=== PATIENT | male | born 1945 | race Caucasian/White ===

== ENCOUNTER 2022-09-01 10:01 | Inpatient (IN) | payer OTHER ==
[2022-09-01] VITALS (7 sets, daily range): BP systolic 115–126; BP diastolic 64–75
[~2022-09-01] VITALS: Ht 175.3 cm; Wt 94.8 kg
[~2022-09-01 10:01] MED LIST: AMLO10TA PO; C-251TAB PO; CHOL10007 PO; LISI20TA33 PO; NIAC500C5 PO; OMEG10002 PO; ROSU5TAB5 PO; ceFAZolin SOD 2 GM in IV 1 EA IV ONE
[2022-09-01] MEDS ORDERED: LR 1,000 ML IV SCH ×2 (10:10→15:20)
[2022-09-01] MEDS ORDERED: HOME MED LIST COMPLETE! XX SCH (10:55)
[2022-09-01] MEDS ORDERED: HEPARIN SOD (PORCINE) 5000UNITS/ML 1ML VIAL/SYRINGE SQ ONE ×2 (11:00→16:05)
[2022-09-01] MEDS ORDERED: BUPIVACAINE HCL 0.25% 30ML VIAL As Ordered ONE (11:13)
[2022-09-01] MEDS ORDERED: LIDOCAINE 1% SDV 30ML VIAL As Ordered ONE (11:13)
[2022-09-01] MEDS ORDERED: ROCURONIUM BROMIDE 50MG/5ML VIAL As Ordered ONE ×2 (11:21→12:02)
[2022-09-01] MEDS ORDERED: propofoL 200 MG/20 ML VIAL As Ordered ONE (11:21)
[2022-09-01] MEDS ORDERED: SUGAMMADEX SODIUM 500 MG/5 ML VIAL (BRIDION) As Ordered ONE (11:21)
[2022-09-01] MEDS ORDERED: LIDOCAINE 2% 100MG/5ML SDV (FOR ANES.) As Ordered ONE (11:21)
[2022-09-01] MEDS ORDERED: fentaNYL 100 MCG/2 ML INJECTION As Ordered ONE (11:22)
[2022-09-01] MEDS ORDERED: MIDAZOLAM INJ 2MG/2ML VIAL As Ordered ONE (11:23)
[2022-09-01] MEDS ORDERED: PERCOCET 5MG/325MG TAB PO PRN ×2 (11:45)
[2022-09-01] MEDS ORDERED: ONDANSETRON 4MG 2ML VIAL IV PRN ×2 (11:45→15:20)
[2022-09-01] MEDS ORDERED: ACETAMINOPHEN TAB 650MG DOSE (2X325MG) PO PRN (11:45)
[2022-09-01] MEDS: NS 1,000 ML IV SCH (11:45)
[2022-09-01] MEDS ORDERED: GLYCOPYRROLATE INJ 0.2 MG/ML 2 ML VIAL As Ordered ONE (12:01)
[2022-09-01] MEDS ORDERED: HYDROmorphone HCL 2MG/ML 1ML VIAL As Ordered ONE (12:08)
[2022-09-01] MEDS ORDERED: ACETAMINOPHEN 1000MG 100ML IV BAG As Ordered ONE (12:12)
[2022-09-01] MEDS ORDERED: PILL CUTTER 1 EACH XX PRN (12:15)
[2022-09-01] MEDS ORDERED: ONDANSETRON 4MG 2ML VIAL As Ordered ONE (12:22)
[2022-09-01] MEDS ORDERED: oxyCODONE 5MG TAB PO PRN (15:20)
[2022-09-01] MEDS ORDERED: HYDROMORPHONE HCL 0.5 MG/ 0.5 ML SYRINGE IV PRN (15:20)
[2022-09-01] MEDS ORDERED: fentaNYL 100 MCG/2 ML INJECTION IV PRN (15:20)
[2022-09-01 16:50] LABS: HEMATOCRIT 39.1 % (42.0-52.0); HEMOGLOBIN 13.3 g/dl (13.5-17.5); MEAN CORPUSCULAR VOLUME 88.1 fl (80.0-96.0); PLATELET COUNT, AUTOMATED 217 10^3/uL (150-450); RED BLOOD COUNT 4.44 10^6/uL (4.30-6.10); WHITE BLOOD COUNT 18.9 10^3/uL (4.0-10.0)
[2022-09-01 17:05] LABS: CALCIUM LEVEL 7.8 MG/DL (8.3-10.6); CREATININE FOR GFR 1.35 MG/DL (0.70-1.30); GLOMERULAR FILTRATION RATE 54.7 (>42); POTASSIUM SERUM 4.7 MMOL/L (3.5-5.1)
[2022-09-01] MEDS: ceFAZolin SOD 1 GM in D5W MINI-BAG PLUS 50 ML IV SCH (20:33)
[2022-09-01] MEDS: DOCUSATE SODIUM 100MG CAPSULE PO SCH (20:33)
[2022-09-01] MEDS ORDERED: NIACIN SR (NIASPAN) 500MG TAB PO SCH (21:00)
[2022-09-01] MEDS: HEPARIN SOD (PORCINE) 5000UNITS/ML 1ML VIAL/SYRINGE SC SCH (21:42)
[2022-09-02 02:00] VITALS: BP 124/75
[2022-09-02] MEDS: ceFAZolin SOD 1 GM in D5W MINI-BAG PLUS 50 ML IV SCH (03:57)
[2022-09-02] MEDS: HEPARIN SOD (PORCINE) 5000UNITS/ML 1ML VIAL/SYRINGE SC SCH ×2 (05:55→15:30)
[2022-09-02 06:00] VITALS: BP 131/71
[2022-09-02 06:37] LABS: HEMATOCRIT 40.5 % (42.0-52.0); HEMOGLOBIN 13.8 g/dl (13.5-17.5); MEAN CORPUSCULAR HEMOGLOBIN 30.1 pg (27.0-33.0); MEAN CORPUSCULAR HGB CONC 34.1 g/dl (32.0-36.5); MEAN CORPUSCULAR VOLUME 88.2 fl (80.0-96.0); PLATELET COUNT, AUTOMATED 212 10^3/uL (150-450); RED BLOOD COUNT 4.59 10^6/uL (4.30-6.10); WHITE BLOOD COUNT 17.5 10^3/uL (4.0-10.0)
[2022-09-02 07:00] LABS: CALCIUM LEVEL 8.1 MG/DL (8.3-10.6); CREATININE FOR GFR 1.26 MG/DL (0.70-1.30); GLOMERULAR FILTRATION RATE 59.2 (>42); POTASSIUM SERUM 4.4 MMOL/L (3.5-5.1)
[2022-09-02] MEDS: NS 1,000 ML IV SCH (07:00)
[2022-09-02] MEDS ORDERED: ROSUVASTATIN 10 MG TAB (CRESTOR) PO SCH (09:00)
[2022-09-02] MEDS: DOCUSATE SODIUM 100MG CAPSULE PO SCH (09:05)
[2022-09-02 10:00] VITALS: BP 125/61
[2022-09-02 14:00] VITALS: BP 136/72
[2022-09-02] MEDS ORDERED: BACT800T5 PO (17:57)
[2022-09-02] MEDS ORDERED: PERCOCET PO (17:57)
== END 2022-09-02 18:42 | disposition home or self-care (01) | DRG 708 ==
LOC: M OR 10:01 → M MSPAV 16:55
PROVIDERS: ADMIT Urology; ATTEND Urology
PROC: 07BC4ZZ Excision of Pelvis Lymphatic, Percutaneous Endoscopic Approach (ICD-10-PCS; 2022-09-01)
PROC: 8E0W4CZ Robotic Assisted Procedure of Trunk Region, Percutaneous Endoscopic Approach (ICD-10-PCS; 2022-09-01)
PROC: 0VT04ZZ Resection of Prostate, Percutaneous Endoscopic Approach (ICD-10-PCS; principal; 2022-09-01 12:00)
DX: C61 Malignant neoplasm of prostate (principal); I10 Essential (primary) hypertension; Z79.899 Other long term (current) drug therapy; Z20.822 Contact with and (suspected) exposure to COVID-19